=== PATIENT | female | born 1965 | race Caucasian/White ===

== ENCOUNTER 2018-04-26 18:50 | Emergency (ER) | payer BC ==
--- NOTE | 2018-04-26 20:47 | EDM.PDOC ---
ED HPI GENERAL MEDICAL PROBLEM - General Chief Complaint: Lower Extremity Injury/Pain Stated Complaint: SWOLLEN AND PAINFUL BEHIND LEFT KNEE Time Seen by Provider: 04/26/18 19:23 Source of Information: Reports: Patient, RN Notes Reviewed History Limitations: Reports: No Limitations - History of Present Illness INITIAL COMMENTS - FREE TEXT/NARRATIVE: The patient states that she has a history of factor V Leiden mutation, status post a DVT around 7 years ago, for which she was initially treated with Coumadin , then, after she developed a second DVT about 1.5 years ago, Xarelto. She is supposed to take 10 mg daily, but she acknowledges that she is poorly compliant with, typically taking it only twice a week, on average. The patient states that she lives in [place], and [place], now driving back home. She states that she developed pain behind her left knee yesterday. She indicates a discomfort felt from her distal posterior left thigh through to the proximal posterior left calf. The pain is a pulling sensation, primarily when she extends her left knee, with minimal discomfort when her left knee is flexed. The patient has not noticed any swelling/edema to either of her lower extremities. The discomfort, however, is similar to when the patient had her first DVT. She states that her last dose of Xarelto was about one week ago. When she developed the pain in her posterior knee yesterday, she took 20 mg of Xarelto last night, then another 10 mg this morning. She does not have any 15 mg tablets, and, unfortunately, Xarelto cannot be split in half. The patient denies any recent chest pain, palpitations, or dyspnea. Here in the ED, it is noted that the patient's oxygen saturation is 100% on room air. Left Leg Pain Score (Numeric/FACES): 7 - Related Data Allergies Allergy/AdvReac Type Severity Reaction Status Date / Time No Known Allergies Allergy Verified 04/26/18 18:58 Home Meds: Home Meds Rivaroxaban [Xarelto] 1 tab PO Q12H #14 tablet 04/26/18 [Rx] Rivaroxaban [Xarelto] 10 mg PO DAILY 04/26/18 [History] Past Medical History Cardiovascular History: Reports: Blood Clots/VTE/DVT (x 2; no hx PE) Gastrointestinal History: Reports: Celiac Disease Psychiatric History: Reports: Anxiety (non-compliant with treatment), Depression (non-compliant with treatment) Hematologic History: Reports: Anticoagulation Therapy (non-compliant with Xarelto), Other (See Below) (Factor V Leiden mutation) - Past Surgical History Female Surgical History: Reports: Endometrial Ablation Social & Family History - Tobacco Use Smoking Status *Q: Never Smoker - Alcohol Use Alcohol Use History: Yes Alcohol Use Frequency: Socially - Recreational Drug Use Recreational Drug Use: No - Living Situation & Occupation Living situation: Reports: , with Spouse Occupation: Employed (Nurse Practitioner) ED ROS GENERAL - Review of Systems Review Of Systems: ROS reveals no pertinent complaints other than HPI. ED EXAM, GENERAL - Physical Exam Exam: See Below Exam Limited By: No Limitations General Appearance: Alert, WD/WN, No Apparent Distress Eye Exam: Bilateral Eye: EOMI, Normal Inspection Ears: Normal External Exam, Hearing Grossly Normal Nose: Normal Inspection Throat/Mouth: Normal Inspection, Normal Lips, Normal Voice, No Airway Compromise Head: Atraumatic, Normocephalic Neck: Normal Inspection, Full Range of Motion Respiratory/Chest: No Respiratory Distress, Lungs Clear, Normal Breath Sounds, No Accessory Muscle Use Cardiovascular: Normal Peripheral Pulses, Regular Rate, Rhythm, No Edema, No Gallop, No JVD, No Murmur, No Rub Peripheral Pulses: 4+: Radial (L), Radial (R), Posterior Tibial (L), Posterior Tibial (R), Dorsalis Pedis (L), Dorsalis Pedis (R) GI/Abdominal: Normal Bowel Sounds, Soft, Non-Tender, No Organomegaly, No Distention, No Abnormal Bruit, No Mass (Female) Exam: Deferred Rectal (Female) Exam: Deferred Back Exam: Normal Inspection, Full Range of Motion, NT Extremities: Normal Inspection, Normal Range of Motion, No Pedal Edema, Normal Capillary Refill, Other (Tenderness to palpation of the posterior left knee, however, no visible abnormality, such as swelling, erythema, ecchymosis, or abrasion.) Neurological: Alert, Oriented, Normal Cognition, No Motor/Sensory Deficits Psychiatric: Normal Affect Skin Exam: Warm, Dry, Intact, Normal Color, No Rash Course - Vital Signs Last Recorded V/S: Last Vital Signs Temp 36.3 C 04/26/18 18:59 Pulse 70 04/26/18 18:59 Resp 16 04/26/18 18:59 BP 145/70 H 04/26/18 18:59 Pulse Ox 100 04/26/18 18:59 - Re-Assessments/Exams Free Text/Narrative Re-Assessment/Exam: 04/26/18 20:40 There is a small risk that the patient has developed a left lower extremity DVT. Another possibility is that the patient has developed a Park's cyst, although I think the most likely explanation is that she has simply strained her posterior knee, as the patient has no left lower extremity edema, nor popliteal bulge. A Doppler ultrasound of her left lower extremity tonight is not indicated, because whether or not a DVT is found, the treatment is the same , namely, anticoagulation. The patient has 10 mg and 20 mg Xarelto tablets, but no 15 mg tablets. Because the patient is so noncompliant with Xarelto, she is essentially starting from scratch. Current guidelines recommend 15 mg BID x 21 days, then 20 mg daily for treatment of a DVT, 10 mg daily for prophylaxis. For tonight's purposes, I will send in a prescription for Xarelto 15 mg, to be taken BID, #14. This will provide her an adequate supply for one week, by which time the patient should be able to see her PCP at home in [place]. The patient is in agreement. Departure - Departure Time of Disposition: 20:44 Disposition: Home, Self-Care 01 Condition: Good Clinical Impression: Left leg pain, Factor V Leiden mutation, History of DVT of lower extremity - Discharge Information *PRESCRIPTION DRUG MONITORING PROGRAM REVIEWED*: Not Applicable *COPY OF PRESCRIPTION DRUG MONITORING REPORT IN PATIENT MICHELLE: Not Applicable Prescriptions: Rivaroxaban [Xarelto] 1 tab PO Q12H #14 tablet Referrals: PCP,Not In Area [Primary Care Provider] - Forms: ED Department Discharge Additional Instructions: You were seen in the emergency room for pain behind your left knee, with a history of lower extremity blood clots in the past. Based on your history and physical examination, it is possible that you have a blood clot in your left lower extremity, versus a Park's cyst, versus musculoskeletal strain. Because of your history of factor V Leiden mutation and 2 DVTs, you need to be anticoagulated whether or not you currently have a blood clot. For this reason, a Doppler ultrasound of your lower extremity makes no difference in your management. A prescription for Xarelto 15 mg has been sent to the [facility], located in the [facility]. The pharmacy will be open until 10:00 tonight. Take one tablet of Xarelto every 12 hours, starting ton, 04/26/2018. Take each dose with food. The prescription is for a supply that will last 1 week. You need to follow-up with your Xarelto prescribing provider before that time for a refill, as current guidelines recommend that you take 15 mg twice a day for 21 days, before switching to once a day. If any other problems, please do not hesitate to return to the ER.
== END 2018-04-26 20:53 | disposition home or self-care (01) ==
LOC: JD.ED 18:50
DX: M79.605 Pain in left leg (principal); D68.51 Activated protein C resistance; Z86.718 Personal history of other venous thrombosis and embolism
CPT/HCPCS: 99283